=== PATIENT | female | born 1975 | race Caucasian/White ===

== ENCOUNTER 2017-02-27 20:17 | Emergency (ER) | payer OTHER ==
[~2017-02-27] VITALS: Ht 167.6 cm; Wt 78.0 kg
[2017-02-27 20:20] VITALS: BP 129/59; PULSE 77; RESP 15; TEMP 98.1; O2SAT 98
[2017-02-27] MEDS ORDERED: LEVO125T4 PO (20:31)
[2017-02-27] MEDS ORDERED: LEVO112T2 PO (20:31)
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
[2017-02-27] MEDS ORDERED: LIDOCAINE HCL 1% 50 ML VIAL ONE (20:39)
[2017-02-27] MEDS ORDERED: TETANUS/DIPHTHERIA TOXOID ADULT 0.5 ML VIAL IM ONE (20:45)
[2017-02-27] MEDS ORDERED: LIDOCAINE HCL 1% 30 ML VIAL INFIL ONE (20:45)
== END 2017-02-27 21:06 | disposition home or self-care (01) ==
LOC: NEPD 20:17
DX: S81.811A Laceration without foreign body, right lower leg, initial encounter (principal); E07.9 Disorder of thyroid, unspecified; W45.8XXA Other foreign body or object entering through skin, initial encounter; Y93.89 Activity, other specified; Z23 Encounter for immunization
CPT/HCPCS: 12002; 12013; 90471; 90714